=== PATIENT | male | born 1940 | race Caucasian/White ===

== ENCOUNTER 2016-05-22 12:15 | Day surgery (SDC) | payer MEDICARE ==
[~2016-05-22] VITALS: Ht 177.8 cm; Wt 124.5 kg
[2016-05-22] MEDS ORDERED: ZYLOPRIM300 MG PO (14:30)
[2016-05-22] MEDS ORDERED: COREG12.5 MG PO (14:30)
[2016-05-22] MEDS ORDERED: LASIX80 MG PO (14:31)
[2016-05-22] MEDS ORDERED: CELEXA20 MG PO (14:31)
[2016-05-22] MEDS ORDERED: ASPIRIN EC81 M1 PO (14:31)
[2016-05-22 14:32] LABS: BASOPHILS 0.3 % (0.0-2.0); EOSINOPHILS 6.4 % (0-7); HEMATOCRIT 38.7 % (42.0-54.0); IMMATURE GRANULOCYTES 0.2 % (0-5); LYMPHOCYTES 14.1 % (15-50); MCH 31.1 pg (26.0-34.0); MCHC 33.6 g/dL (31.0-37.0); MCV 92.6 fL (80.0-100.0); MEAN PLATELET VOLUME 10.1 fL (7.4-10.4); MONOCYTES 10.9 % (2-11); NEUTROPHILS 68.1 % (40-80); PLATELET COUNT 153 10x3/uL (130-400); RBC 4.18 10x6/uL (4.20-6.10); RDW 14.5 % (11.5-14.5); WBC 6.2 10x3/uL (4.8-10.8)
[2016-05-22] MEDS ORDERED: ACCUPRIL20 MG PO (14:32)
[2016-05-22] MEDS ORDERED: MAG-OXIDE400 MG PO (14:32)
[2016-05-22] MEDS ORDERED: ALDACTONE25 MG PO (14:32)
[2016-05-22] MEDS ORDERED: VITAMIN E400 UNI2 PO (14:33)
[2016-05-22] MEDS ORDERED: COUMADIN5 MG PO (14:34)
[2016-05-22] MEDS ORDERED: SYMBICORT 80-10.2 GM INH (14:34)
[2016-05-22] MEDS ORDERED: ATIVAN1 MG PO (14:35)
[2016-05-22] MEDS ORDERED: COZAAR50 MG PO (14:35)
[2016-05-22] MEDS ORDERED: METOLAZONE5 MG PO (14:36)
[2016-05-22] MEDS ORDERED: PRAVACHOL40 MG PO (14:37)
[2016-05-22] MEDS ORDERED: PROTONIX40 MG PO (14:37)
[2016-05-22] MEDS ORDERED: POTASSIUM CHLOR8 ME1 PO (14:37)
[2016-05-22 14:40] LABS: CALC OSMOLALITY 268 mosm/kg (275-300); CALCIUM 9.2 mg/dL (8.5-10.1); CARBON DIOXIDE 27.2 mmol/L (21.0-32.0); CHLORIDE - SERUM 95 mmol/L (98-107); CREATININE - SERUM 0.9 mg/dL (0.6-1.3); GLUCOSE 99 mg/dL (74-106); POTASSIUM - SERUM 3.9 mmol/L (3.5-5.1); SODIUM 133 mmol/L (136-145); UREA NITROGEN 20 mg/dL (7-18); eGFR NON AFRICAN AMERICAN 87 mL/min (90-120)
[2016-05-22 15:01] VITALS: BP 142/77; Ht 177.8 cm; Wt 124.5 kg
--- NOTE | 2016-05-28 10:15 | OP ---
PATIENT NAME: ALEXIS WRIGHT MEDICAL RECORD: [id number] :42 LOCATION:[facility] ADMISSION DATE: SURGEON: SUSI WOODS DO DATE OF OPERATION: 05/22/2016 PROCEDURE: Colonoscopy. SCOPE: Olympus video pediatric colonoscope. MEDICATIONS: Propofol 500 mg IV per anesthesia. WITHDRAWAL TIME: 6 minutes. INDICATIONS FOR PROCEDURE: Screening colonoscopy. FINDINGS: Informed consent was given. The patient was made comfortable with the above medication. After reaching an adequate level of sedation by slow IV push, the patient was placed on his left side. A digital rectal examination was performed and was normal. The scope was then advanced under direct visualization through the rectum to the cecum. The procedure was somewhat difficult and required counter pressure. The scope was then slowly withdrawn as the mucosa was carefully visualized. Findings include pandiverticulosis of mild severity. Otherwise, the colon was normal. There were no polyps or other lesions identified. The scope was withdrawn from the patient. The patient tolerated the procedure well and there were no complications. ESTIMATED BLOOD LOSS: Zero. IMPRESSION: Pandiverticulosis without evidence of diverticulitis. PLAN AND RECOMMENDATIONS: 1. Discharge home when recovery parameters are met. 2. Continue high fiber diet. 3. Continue current medications. 4. No further colonoscopies are necessary as the patient is 76 years of age. TRANSINT:[id number] Voice Confirmation ID: [id number] DOCUMENT ID: [id number] SUSI WOODS DO at 1015 CC: [id number] DICTATION DATE: 05/22/16 1749 DEVELOPER ANALYST: 05/22/16 2349 [facility] 05/22/16 [place] [id number]
== END 2016-05-22 19:05 | disposition home or self-care (01) ==
LOC: D.OPS 12:15
PROVIDERS: Anesthesiology
DX: Z12.11 Encounter for screening for malignant neoplasm of colon (principal); K57.30 Diverticulosis of large intestine without perforation or abscess without bleeding